=== PATIENT | female | born 1990 | race Two or more races ===

== ENCOUNTER 2019-10-06 12:00 | Emergency (ER) | payer OTHER ==
[~2019-10-06] VITALS: Ht 167.6 cm; Wt 90.7 kg
[2019-10-06] MEDS ORDERED: ONDANSETRON HCL 4 MG/2 ML VIAL ONE (12:50)
[2019-10-06] MEDS ORDERED: MORPHINE SULF INJ 2 MG/ML SYRINGE 1ML ONE (12:50)
[2019-10-06] MEDS ORDERED: ONDANSETRON HCL 4 MG/2 ML VIAL IV ONE (13:00)
[2019-10-06] MEDS ORDERED: MORPHINE SULF INJ 2 MG/ML SYRINGE 1ML IV ONE (13:00)
[2019-10-06] MEDS ORDERED: MORPHINE SULF INJ 2 MG/ML SYRINGE 1ML IM ONE (13:00)
[2019-10-06 14:58] VITALS: BP 117/75
== END 2019-10-06 14:59 | disposition home or self-care (01) ==
LOC: ER 12:00
DX: S83.004A Unspecified dislocation of right patella, initial encounter (principal); W19.XXXA Unspecified fall, initial encounter; Y93.89 Activity, other specified; Y99.8 Other external cause status; Y92.89 Other specified places as the place of occurrence of the external cause
CPT/HCPCS: 27560; 73560; 96374; 96375; 99284; J2270; J2405

== ENCOUNTER 2023-08-23 17:57 | Emergency (ER) | payer MEDICAID, OTHER ==
[~2023-08-23] VITALS: Ht 160 cm; Wt 73.7 kg
[2023-08-23 20:41] LABS: Basophils # (auto) 0 10 ^3/uL (0-0.2); Basophils % (auto) 0.5 % (0.0-2.0); Eosinophils # (auto) 0.5 10 ^3/uL (0-0.8); Eosinophils % (auto) 4.8 % (0.0-7.0); Hematocrit 40.3 % (36.0-46.0); Hemoglobin 13.4 g/dL (12.2-16.2); Lymphocytes # (auto) 2.8 10 ^3/uL (0.4-5.4); Lymphocytes % (auto) 30.1 % (10.0-50.0); Mean Corpuscular Hgb Conc. 33.2 g/dL (32.0-36.0); Mean Corpuscular Volume 90.4 fL (80.0-100.0); Monocytes # (auto) 1.3 10 ^3/uL (0-1.3); Neutrophils # (auto) 4.7 10 ^3/uL (1.6-8.6); Neutrophils % (auto) 50.6 % (37.0-80.0); Red Blood Cells 4.46 10^6/uL (4.0-5.20); Red Cell Distribution Width 13.5 % (11.8-14.3); White Blood Cell 9.4 10^3/uL (4.4-10.8)
[2023-08-23 20:53] LABS: Chloride 107 mmol/L (98-107); Potassium 3.9 mmol/L (3.5-5.1); Sodium 138 mmol/L (136-145)
[2023-08-23 20:54] LABS: Anion Gap 5 (5-15); Calcium 9.8 mg/dL (8.7-10.4); Carbon Dioxide 26 mmol/L (20-30)
[2023-08-23 20:59] LABS: BUN/Creatinine Ratio 15.4 (10.0-20.0); Blood Urea Nitrogen 10 mg/dL (9-23); Glucose 114 mg/dL (74-106)
[2023-08-23 22:32] LABS: INR 1.04 (0.9-1.15); Prothrombin Time 10.9 sec (9.3-11.8)
[2023-08-24 00:15] VITALS: BP 143/91; PULSE 70; RESP 18; TEMP 98.3; O2SAT 97
[2023-08-24] MEDS: IOHEXOL 350 MG/ML 100ML IJ ONE (00:24)
== END 2023-08-24 00:24 | disposition home or self-care (01) ==
LOC: ER 17:57
DX: I82.402 Acute embolism and thrombosis of unspecified deep veins of left lower extremity (principal); R06.02 Shortness of breath
CPT/HCPCS: 36415; 71275; 80048; 84484; 85025; 85379; 85610; 93005; 93971; 99285; Q9967